=== PATIENT | female | born 1985 | race Caucasian/White ===

== ENCOUNTER 2016-12-28 14:59 | Emergency (ER) | payer OTHER ==
--- NOTE | 2016-12-28 15:59 | EKG ---
[address] [address] Test Date: 2016-12-28 Test Time: 15:08:06 Pat Name: ALIYAH MORENO Department: Room: Gender: F Feltmaker: : 1985 Requested By: GARLAND ROPER Order Number: [id number] Reading MD: Measurements Intervals [place] Rate: 79 P: 59 [place]: 148 QRS: 14 QRSD: 82 T: 36 QT: 344 QTc: 395 Interpretive Statements SINUS RHYTHM NORMAL ECG RI6.01 No previous ECG available for comparison
[2016-12-28] MEDS ORDERED: IV NORMAL SALINE 1,000ML 1,000 ML IV SCH (16:15)
[2016-12-28] MEDS ORDERED: ASPIRIN 81 MG TAB.CHEW ONE (16:15)
[2016-12-28] MEDS ORDERED: ASPIRIN 81 MG TAB.CHEW PO ONE (16:15)
[2016-12-28 16:18] LABS: BASO % 1 % (0-3); EOS # 0.2 x10^3/uL (0.0-0.7); EOS % 2 % (0-3); HEMATOCRIT 39.6 % (36.0-47.0); HEMOGLOBIN 13.9 g/dL (12.0-15.5); LYMPH # 2.8 x10^3/uL (1.0-4.8); LYMPH % 36 % (24-48); MEAN CORPUSCULAR HEMOGLOBIN 31 pg (25-35); MEAN CORPUSCULAR HGB CONC 35 g/dL (31-37); MEAN CORPUSCULAR VOLUME 87 fL (79-100); MONO # 0.5 x10^3/uL (0.0-1.1); MONO % 7 % (0-9); NEUT # 4.2 x10^3uL (1.8-7.7); NEUT % 54 % (31-73); PLATELET COUNT 278 x10^3/uL (140-400); RED BLOOD COUNT 4.53 x10^6/uL (3.50-5.40); WHITE BLOOD COUNT 7.8 x10^3/uL (4.0-11.0)
[2016-12-28 17:17] LABS: HEMOGLOBIN ISTAT 13.6 gm/dL; POTASSIUM ISTAT 3.8 mmol/L (3.5-5.0)
[2016-12-28 17:45] VITALS: BP 122/70
[2016-12-28] MEDS ORDERED: ASPI-612 PO (17:50)
--- NOTE | 2016-12-28 17:50 | PHYS DOC ---
Adult General Chief Complaint Chief Complaint: CHEST PAIN HPI HPI Patient is a 31 year old female who presents with complaint of chest pain. Patient states that her symptoms started approximately 3 hours prior to arrival. The patient states that the pain is along the left side of her chest. Patient states that the pain feels like pressure. Patient denies any associated shortness of breath, nausea, or diaphoresis. Patient states over the past few days she has been having pains that started in her back and radiates towards her shoulder and neck. Patient denies significant cardiac history. Patient states that she has had history of ovarian cancer and underwent full hysterectomy and chemotherapy treatment. The patient states she is currently in remission. Patient is on hormone replacement therapy. Patient also has history of tobacco use, stating that she has smoked for the past 17 years. Patient notes family history of myocardial infarction. Patient currently rates her pain as 3 out of 10. The patient states she took ibuprofen for symptoms but did resolve. Review of Systems Review of Systems Constitutional: Denies fever or chills [] Eyes: Denies change in visual acuity, redness, or eye pain [] HENT: Denies nasal congestion or sore throat [] Respiratory: Denies cough or shortness of breath [] Cardiovascular: Chest pain, denies edema[] GI: Denies abdominal pain, nausea, vomiting, bloody stools or diarrhea [] : Denies dysuria or hematuria [] Musculoskeletal: Denies back pain or joint pain [] Integument: Denies rash or skin lesions [] Neurologic: Denies headache, focal weakness or sensory changes [] Current Medications Current Medications Current Medications Medications (Trade) Dose Ordered Sig/Rick Start Time Stop Time Status Last Admin Dose Admin Aspirin (Children'S Aspirin) 81 mg STK-MED ONCE 12/28/16 16:15 12/28/16 16:16 DC Sodium Chloride 1,000 ml @ 1,000 mls/hr Q1H 12/28/16 16:15 12/28/16 17:15 DC 12/28/16 16:20 1,000 MLS/HR Allergies Allergies Allergies Coded Allergies Type Severity Reaction Last Updated Verified morphine Allergy Unknown 12/28/16 Yes Physical Exam Physical Exam Constitutional: Well developed, well nourished, no acute distress, non-toxic appearance. [] HENT: Normocephalic, atraumatic, bilateral external ears normal, oropharynx moist, no oral exudates, nose normal. [] Eyes: PERRLA, EOMI, conjunctiva normal, no discharge. [] Neck: Normal range of motion, no tenderness, supple, no stridor. [] Cardiovascular:Heart rate regular rhythm, no murmur [] Lungs & Thorax: Bilateral breath sounds clear to auscultation [] Abdomen: Bowel sounds normal, soft, no tenderness, no masses, no pulsatile masses. [] Skin: Warm, dry, no erythema, no rash. [] Back: No tenderness, no CVA tenderness. [] Extremities: No tenderness, no cyanosis, no clubbing, ROM intact, no edema. [] Neurologic: Alert and oriented X 3, normal motor function, normal sensory function, no focal deficits noted. [] Current Patient Data Vital Signs Vital signs reviewed and are stable Lab Results Laboratory Tests Test 12/28/16 15:15 12/28/16 16:11 12/28/16 16:28 12/28/16 16:32 White Blood Count 7.8 x10^3/uL (4.0-11.0) Red Blood Count 4.53 x10^6/uL (3.50-5.40) Hemoglobin 13.9 g/dL (12.0-15.5) Hematocrit 39.6 % (36.0-47.0) Mean Corpuscular Volume 87 fL (79-100) Mean Corpuscular Hemoglobin 31 pg (25-35) Mean Corpuscular Hemoglobin Concent 35 g/dL (31-37) Red Cell Distribution Width 14.0 % (11.5-14.5) Platelet Count 278 x10^3/uL (140-400) Neutrophils (%) (Auto) 54 % (31-73) Lymphocytes (%) (Auto) 36 % (24-48) Monocytes (%) (Auto) 7 % (0-9) Eosinophils (%) (Auto) 2 % (0-3) Basophils (%) (Auto) 1 % (0-3) Neutrophils # (Auto) 4.2 x10^3uL (1.8-7.7) Lymphocytes # (Auto) 2.8 x10^3/uL (1.0-4.8) Monocytes # (Auto) 0.5 x10^3/uL (0.0-1.1) Eosinophils # (Auto) 0.2 x10^3/uL (0.0-0.7) Basophils # (Auto) 0.0 x10^3/uL (0.0-0.2) POC Troponin I 0.00 ng/ml (<0.08) 0.00 ng/ml (<0.08) POC Hemoglobin 13.6 gm/dL POC Hematocrit 40 % POC Sodium 140 mmol/L (135-145) POC Potassium 3.8 mmol/L (3.5-5.0) POC Chloride 104 mmol/L (98-110) POC Total CO2 25 mmol/L (23-32) Anion Gap 16 mmol/L (6-14) H POC Blood Urea Nitrogen 11 mg/dL (8-26) POC Creatinine 0.7 mg/dL (0.5-1.4) Glucose Level 80 mg/dL (60-99) POC Ionized Calcium (Al) 1.22 mmol/L (1.13-1.32) EKG EKG Interpreted by me: Heart rate 79, sinus rhythm, normal intervals, normal axis, no acute ST/T-wave abnormalities present[] Radiology/Procedures Radiology/Procedures One view AP chest x-ray interpreted by me: No infiltrates, no effusions, normal cardiac silhouette[] Course & Med Decision Making Course & Med Decision Making Pertinent Labs and Imaging studies reviewed. (See chart for details) HEART score is 1. Patient given aspirin in the emergency department. The patient 's lab work was reviewed and showed serial negative troponins with the second troponin drawn at the 4 hour sriram status post onset of symptoms. Patient's symptoms appear atypical for acute coronary syndrome. I spoke with the patient regarding her symptoms. Patient was offered admission to hospital versus outpatient follow-up. The patient stated that she would follow-up in 2 days with cardiology. The patient was placed on daily aspirin and advised follow-up with Dr. Steward in 2 days for reevaluation. Advised return emergency department for any worsening symptoms. Patient voiced understanding and in agreement with treatment plan. Dragon Disclaimer Dragon Disclaimer This chart was dictated in whole or in part using Voice Recognition software in a busy, high-work load, and often noisy Emergency Department environment. It may contain unintended and wholly unrecognized errors or omissions. Departure Departure: Impression: Primary Impression: Atypical chest pain Disposition: 01 HOME, SELF-CARE Condition: IMPROVED Referrals: RODRIGUEZ STEWARD MD Patient Instructions: Chest Pain (Nonspecific) Additional Instructions: Follow-up in [address] Steward of cardiology for reevaluation and possible stress testing. Continue on daily aspirin until you have had for follow -up appointment. Return to the emergency department for any worsening symptoms. Scripts Aspirin (ASPIRIN EC) 81 Mg Tablet.dr 1 TAB PO DAILY, #30 TAB 0 Refills Prov: SRIRAM ROPER MD 12/28/16 SRIRAM ROPER MD Dec 28, 2016 17:50
--- NOTE | 2016-12-29 08:59 | RAD ---
AP chest. History: Chest pain AP view was taken of the chest. Lungs are clear. Heart is normal in size. There is no pleural effusion. Impression: 1. No acute chest disease.
== END 2016-12-28 17:58 | disposition home or self-care (01) ==
LOC: ER 14:59
DX: R07.89 Other chest pain (principal); Z87.891 Personal history of nicotine dependence; Z88.5 Allergy status to narcotic agent
CPT/HCPCS: 36415; 71010; 80047; 84484; 85025; 93005; 96360; 99285-25; J7030

== ENCOUNTER → 2017-07-28 | Outpatient (CLI) | payer OTHER ==
[~2017-07-28] MED LIST: ASPI-612 PO
--- NOTE | 2017-08-08 11:09 | RAD ---
DATE: 07/28/2017 EXAM: MAMMO PARVIN SCREENING BILATERAL HISTORY: Routine screening COMPARISON: 1 image from 08/12/2016 This study was interpreted with the benefit of Computerized Aided Detection (CAD). The breast parenchyma shows scattered fibroglandular densities. Breast parenchyma level B. FINDINGS: 2-D and 3-D tomosynthesis imaging was performed in CC and MLO projections. There is only one currently available comparison image from the right breast. There is a breast biopsy marker in the posteromedial aspect of the right breast. No suspicious breast density or microcalcifications are evident. IMPRESSION: There is no mammographic evidence of malignancy in either breast. BI-RADS CATEGORY: 1 NEGATIVE RECOMMENDED FOLLOW-UP: 12M 12 MONTH FOLLOW-UP PQRS compliance statement: Patient information was entered into a reminder system with a target due date for the next mammogram. Mammography is a sensitive method for finding small breast cancers, but it does not detect them all and is not a substitute for careful clinical examination. A negative mammogram does not negate a clinically suspicious finding and should not result in delay in biopsying a clinically suspicious abnormality. "Our facility is accredited by the [employer] Mammography Program."
== END | disposition home or self-care (01) ==
LOC: MAMMO 08:30
PROVIDERS: ATTEND Nurse Practitioner Family
DX: Z12.31 Encounter for screening mammogram for malignant neoplasm of breast (principal); Z87.891 Personal history of nicotine dependence
CPT/HCPCS: 77063; 77067